=== PATIENT | male | born 1990 | race African-American/Black ===

== ENCOUNTER 2016-11-18 09:16 | Emergency (ER) | payer OTHER ==
[~2016-11-18] VITALS: Ht 185.4 cm; Wt 90.7 kg
[~2016-11-18 09:16] MED LIST: ORUDIS75 M1 PO; PHENERGAN25 MG PO
[2016-11-18 09:48] LABS: URINE SOURCE CLEAN CATCH
[2016-11-18 09:55] LABS: URINE APPEARANCE CLEAR; URINE BILIRUBIN NEG (NEG); URINE BLOOD NEG (NEG); URINE COLOR YELLOW; URINE GLUCOSE NEG (NEG); URINE KETONE TRACE (NEG); URINE LEUKOCYTE ESTERASE TRACE (NEG); URINE NITRATE NEG (NEG); URINE PROTEIN NEG (NEG); URINE SPECIFIC GRAVITY 1.024 (1.003-1.035)
[2016-11-18 09:57] LABS: CULTURE INDICATED? NO; URBCS1 AUWI 0-2 /[HPF] (0-2); URINE BACTERIA AUWI NEG (NEGATIVE); URINE SQUAMOUS EPITHELIAL CELL NONE SEEN /[HPF]
[2016-11-19 23:47] LABS: CHLAMYDIA TRACH Not Detected (Not Detected); N GONOR Not Detected (Not Detected)
== END 2016-11-18 09:59 | disposition home or self-care (01) ==
LOC: CED 09:16 → CFTX 09:16
PROVIDERS: Physician Assistant
DX: K64.4 Residual hemorrhoidal skin tags (principal); F20.9 Schizophrenia, unspecified; R03.0 Elevated blood-pressure reading, without diagnosis of hypertension; F17.210 Nicotine dependence, cigarettes, uncomplicated
CPT/HCPCS: 81003; 87491; 87591; 99283

== ENCOUNTER 2016-11-24 21:00 | Inpatient (IN) | payer OTHER ==
[~2016-11-24] VITALS: Ht 185.4 cm; Wt 88.0 kg
--- NOTE | ~2016-11-24 | PA ---
Unit #: [id number] #: [id number] Patient: JUSTICE CONROY [id number] [facility] [address] [place] [address] [id number] MR#: [id number] NAME: JUSTICE CONROY ROOM: P205 Age: 26 Sex: M Admission Date: 11/24/2016 : 1990 Date of Assessment: 11/25/2016 Attending Physician: Virgilio Harrison M.D. Admitting Physician: Virgilio Harrison M.D. Primary Care Physician: Primary Care Physician No PSYCHIATRIC ASSESSMENT IDENTIFYING INFORMATION The patient is a 26-year-old male with a history of chronic paranoid schizophrenia and alcohol abuse admitted with recurrence of auditory hallucinations and increasing alcohol use. INFORMANT(S) The patient, patient's reliability is good. CHIEF COMPLAINT I've been through it. HISTORY OF PRESENT ILLNESS The patient is a 26-year-old male well known to this physician. He had previously been maintained on [facility] but unfortunately had been lost to followup after he was incarcerated on child support charges. The patient returns to the hospital reporting positive auditory hallucinations and some suicidal thinking. He has also been abusing alcohol and cannabis per his report. For more complete history of present illness please refer to previous dictated notes. PAST PSYCHIATRIC HISTORY Reviewed no changes. PAST MEDICAL HISTORY Reviewed no changes. MEDICATIONS None at this time. ALLERGIES None. FAMILY HISTORY Noncontributory. SOCIAL HISTORY Reviewed no changes. MENTAL STATUS EXAMINATION At this time reveals the patient to be a well-developed, well-nourished male appearing his stated age. He is in no apparent physical distress at the time of examination. He is awake, alert, and oriented in all spheres. His mood is mildly dysphoric. His affect is Unit #: [id number] #: [id number] Patient: JUSTICE CONROY blunted. Speech is generally relevant and coherent. There are no gross deficits in memory or cognition noted. Intelligence is judged to be in the average range based on fund of knowledge. The patient is cooperative throughout the interview. He is currently endorsing positive suicidal ideation. He denies homicidal ideation. He reports positive auditory hallucinations. Judgement and insight appear to be reasonably intact. ASSETS AND LIABILITIES ASSETS: Motivation for change. LIABILITIES: Poor compliance to treatment. ADMITTING DIAGNOSES 1. Chronic paranoid schizophrenia. 2. Cannabis use disorder. 3. Alcohol use disorder. 4. Asthma by history. PSYCHIATRIC PLAN/TREATMENT GOALS The patient remains hospitalized for safety and stabilization. A routine detoxification protocol for alcohol has been initiated and suicidal precautions are in place. We will restart the patient's Invega beginning with a loading dose of 254 mg intramuscularly to be given as soon as possible. ESTIMATED LENGTH OF STAY Five to seven days. Dictated by... Virgilio Harrison M.D. SEEMA/manoj TD: 11/25/2016 21:48 JOB #: [id number] PSYCHIATRIC ASSESSMENT Page 1 of 1 X Virgilio Harrison MD X PSYCHIATRIC ASSESSMENT
--- NOTE | ~2016-11-24 | PN ---
Unit #: [id number] #: [id number] Patient: JUSTICE CONROY [id number] [facility] [address] [place] [address] [id number] MR#: [id number] NAME: JUSTICE CONROY ROOM: P205 Age: 26 Sex: M Admission Date: 11/24/2016 : 1990 Attending Physician: Virgilio Harrison M.D. Admitting Physician: Virgilio Harrison M.D. Primary Care Physician: Primary Care Physician Yuliya ROACH PROGRESS NOTES DATE 11/26/2016 DISCUSSION The patient is in brighter spirits today. He has received his first Invega Sustenna injection, and we will have a second 4 days hence. He continues active participation within the therapeutic milieu and exhibits little in the way of signs or symptoms of withdrawal. Dictated by... Virgilio Harrison M.D. CB/bzeamon TD: 11/26/2016 13:58 JOB #: [id number] [facility] PROGRESS NOTES Page 1 of 1 X Virgilio Harrison MD PROGRESS NOTE
--- NOTE | ~2016-11-24 | DS ---
Unit #: [id number] #: [id number] Patient: JUSTICE CONROY [id number] [place] [address] [id number] MR#: [id number] NAME: JUSTICE CONROY ROOM: [facility] Age: 26 Sex: M Admission Date: 11/24/2016 : 1990 Discharge Date: 11/27/2016 Attending Physician: Virgilio Harrison M.D. Primary Care Physician: Primary Care Physician No DISCHARGE SUMMARY REASON FOR ADMISSION The patient is a 26-year-old male, admitted with recurrence of schizophrenic symptoms as well as abuse of alcohol. HOSPITAL COURSE The patient was admitted to the [address] [place] [address] unit and placed on routine detoxification protocol for alcohol. Invega Sustenna, medication which the patient has history of positive response was reinitiated with the initial loading dose of 256 mg having been provided on 11/25/2016. By 11/27/2016, the patient was in bright spirits and exhibited no signs or symptoms of withdrawal. He requested discharge and was agreeable to plan for followup in the intensive outpatient program. Discharge was ordered. FINAL DIAGNOSES Chronic paranoid schizophrenia and alcohol use disorder. DISPOSITION ON DISCHARGE The patient is discharged on the following medications: Invega Sustenna 156 mg q.4 weeks, next dose to be due on 12/02/2016 for psychosis. DISCHARGE INSTRUCTIONS No dietary or physical restrictions were placed upon the patient at the time of discharge. FOLLOWUP Followup will take place through the auspices of the chemical dependency intensive outpatient program provided by this facility. PROGNOSIS The patient's prognosis is good. Dictated by... Virgilio Harrison M.D. CB/edgar TD: 11/27/2016 14:10 JOB #: [id number] Unit #: [id number] #: [id number] Patient: JUSTICE CONROY DISCHARGE SUMMARY Page 1 of 1 X Virgilio Harrison MD X DISCHARGE SUMMARY
--- NOTE | ~2016-11-24 | HP ---
Unit #: [id number] #: [id number] Patient: JUSTICE CONROY [id number] [place] [address] [id number] I MR#: [id number] NAME: JUSTICE CONROY ROOM: P205 Age: 26 Sex: M Admission Date: 11/24/2016 : 1990 Attending Physician: Virgilio Harrison M.D. Admitting Physician: Virgilio Harrison M.D. Primary Care Physician: Primary Care Physician No HISTORY AND PHYSICAL HISTORY AND PHYSICAL COMPLETED 11/25/2016 HISTORY OF PRESENT ILLNESS Justice is a 26 male, admitted to [address] [place] [address] on 11/24/2016 for suicidal ideation, and auditory hallucinations. PAST MEDICAL HISTORY None. PAST SURGICAL HISTORY Reports a right orbital fracture with surgical repair. SOCIAL HISTORY He smokes one half pack of cigarettes daily, denies alcohol use, does report marijuana use. He is currently single and living with his mother. FAMILY HISTORY Noncontributory. REVIEW OF SYSTEMS CONSTITUTIONAL: No fever or chills. HEENT: Denies any sore throat, ear pain or runny nose. CARDIOVASCULAR: Denies chest pain, irregular heart rhythm or palpitations. CHEST: Denies shortness of breath or cough. No hemoptysis. GASTROINTESTINAL: Denies nausea, vomiting, diarrhea or chronic constipation. ENDOCRINE: Denies history of increased thirst or urination. No recent significant weight loss or gain. GENITOURINARY: Denies dysuria, frequency, or hematuria. SKIN: Denies any rashes. HEMATOLOGIC: Denies history of increased bleeding or bruising. MUSCULOSKELETAL: Denies any hot, swollen joints. No generalized muscle pain. NEUROLOGIC: Denies problems with vision or speech. No frequent, severe headaches. No numbness, tingling or weakness in any extremities. Denies loss of bladder or bowel control. CURRENT MEDICATIONS None. ALLERGIES None. Unit #: [id number] #: [id number] Patient: JUSTICE CONROY PHYSICAL EXAMINATION GENERAL: Alert, oriented, and in no acute distress. VITAL SIGNS: Blood pressure 113/75, heart rate 61, temperature 98.6. HEIGHT: 6 feet 1 inch. WEIGHT: 194 pounds. SKIN: Warm and dry without rash or lesion. HEENT: Normocephalic. TMs not viewed. Oral and nasal passages clear. Conjunctivae clear. PERRLA. EOMs intact. NECK: Supple without lymphadenopathy or thyromegaly. HEART: Regular rate and rhythm without murmur. LUNGS: Clear. ABDOMEN: Soft, nontender. : Not done. EXTREMITIES: No evidence of cyanosis, clubbing or edema. Moves all without focal deficit. NEUROLOGICAL: Grossly within normal limits. Cranial Nerves: II: Visual xiong are intact. III, IV AND : Extraocular movements are intact. Pupils are equal, round and reactive to light. V: Facial sensation is grossly normal. VII: Facial movements and expression are normal. VIII: Auditory acuity grossly intact. IX, X: Uvula is midline. Phonation is normal. XI: Patient shrugs shoulders and turns head normally. XII: Tongue protrudes in the midline. Sensory and Motor Function: Sensory and motor sensation is grossly normal. Motor: moves all extremities well. Coordination: Gait is normal. Deep Tendon Reflexes: Intact. IMPRESSION Psychiatric admission. RECOMMENDATIONS Psychiatric, per psychiatrist. MEDICAL No contraindications to participating in facility's activities. MEDICAL PROGNOSIS Good. MEDICAL CONDITION Stable. Dictated by... Matheus Moser TD: 11/25/2016 12:05 JOB #: [id number] Unit #: [id number] #: [id number] Patient: JUSTICE CONROY HISTORY AND PHYSICAL Page 1 of 1 X JEMMA BEAN APRN X HISTORY AND PHYSICAL
[2016-11-25 09:51] LABS: BASOPHIL% 0.8 % (0-2.5); EOSINOPHIL# 0.1 X10e3 (0-0.7); EOSINOPHIL% 1.8 % (0.0-7.0); HEMATOCRIT 46.6 % (38.0-50.0); HEMOGLOBIN 15.1 gm/dL (13.0-16.0); LYMPHOCYTE# 0.9 X10e3 (1.0-3.5); LYMPHOCYTE% 24.1 % (17.0-45.0); MEAN CELL VOLUME 94.9 FL (83-96); MEAN CORPUSCULAR HEMOGLOBIN 30.8 PG (28-34); MEAN CORPUSCULAR HGB CONC 32.5 g/dL (30-36); MEAN PLATELET VOLUME 9.1 FL (6.5-11.5); MONOCYTE# 0.4 X10e3 (0-1.0); MONOCYTE% 9.9 % (3.0-12.0); NEUTROPHIL# 2.3 X10e3 (1.5-7.1); NEUTROPHIL% 63.4 % (40-75); PLATELET COUNT 198 X10e3 (140-420); RED BLOOD COUNT 4.91 X10e (3.90-5.60); RED CELL DISTRIBUTION WIDTH 12.9 % (11.0-15.5); WHITE BLOOD COUNT 3.7 X10e3 (4.0-10.5)
[2016-11-25 10:00] LABS: DIFF IND NO
[2016-11-25 10:40] LABS: ALBUMIN SERUM 3.7 g/dL (3.5-5.0); BILIRUBIN,TOTAL 1.4 mg/dL (0.2-2.0); CALCIUM SERUM 9.5 mg/dL (8.4-10.2); CREATININE SERUM 1.2 mg/dL (0.6-1.4); GLOM FILT RATE Estimated 95.5 mL/min (>60); PROTEIN TOTAL SERUM 6.3 g/dL (6.0-8.3)
[2016-11-26 10:20] LABS: AMPHETAMINE NEG (NEG); BARBITURATES NEG (NEG); BENZODIAZEPINES NEG (NEG); COCAINE NEG (NEG); MARIJUANA POS (NEG); OPIATES NEG (NEG); TRICYCLIC ANTIDEPRESSANTS NEG (NEG); U METHADONE NEG (NEG)
== END 2016-11-27 14:39 | disposition home or self-care (01) | DRG 885 ==
LOC: P2S 23:28
PROVIDERS: Specialist
DX: F20.0 Paranoid schizophrenia (principal); R45.851 Suicidal ideations; F17.200 Nicotine dependence, unspecified, uncomplicated; F12.10 Cannabis abuse, uncomplicated; F10.10 Alcohol abuse, uncomplicated
CPT/HCPCS: 80053; 80307; 85025; 86592